=== PATIENT | male | born 1965 | race Caucasian/White ===

== ENCOUNTER 2016-12-31 00:04 | Emergency (ER) | payer OTHER ==
[~2016-12-31] VITALS: Ht 165.1 cm; Wt 108.9 kg
[2016-12-31 00:05] VITALS: BP 151/79
[2016-12-31] MEDS ORDERED: LORAZEPAM 2 MG/ML VIAL. IV ONE (00:30)
[2016-12-31] MEDS ORDERED: IV NORMAL SALINE 1000ML BAG 1,000 ML IV SCH (00:30)
[2016-12-31] MEDS ORDERED: ONDANSETRON PF 4 MG/2 ML VIAL. IV ONE (00:30)
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
[2016-12-31] MEDS ORDERED: ZIPRASIDONE IM 20 MG VIAL. IM ONE (01:30)
[2016-12-31 01:40] LABS: BASO # 0.1 x10^3/uL (0.0-0.2); BASO % 1 % (0-3); EOS % 5 % (0-3); HEMOGLOBIN 15.4 g/dL (13.0-17.5); LYMPH % 36 % (24-48); MEAN CORPUSCULAR HEMOGLOBIN 33 pg (25-35); MEAN CORPUSCULAR HGB CONC 34 g/dL (31-37); MEAN CORPUSCULAR VOLUME 97 fL (79-100); MONO % 12 % (0-9); NEUT % 46 % (31-73); PLATELET COUNT 154 x10^3/uL (140-400); RED BLOOD COUNT 4.66 x10^6/uL (4.30-5.70); WHITE BLOOD COUNT 8.4 x10^3/uL (4.0-11.0)
[2016-12-31] MEDS ORDERED: fentaNYL PF VIAL 100 MCG/2 ML VIAL IV PRN (01:45)
[2016-12-31 01:49] LABS: PROTHROMBIN TIME PATIENT 12.5 SEC (11.7-14.0)
[2016-12-31 01:51] LABS: CALCIUM 8.3 mg/dL (8.5-10.1); CREATININE 1.3 mg/dL (0.7-1.3); POTASSIUM 3.5 mmol/L (3.5-5.1)
[2016-12-31 01:54] LABS: ALBUMIN 3.8 g/dL (3.4-5.0); ALBUMIN/GLOBULIN RATIO 1.1 (1.0-1.7); TOTAL BILIRUBIN 0.3 mg/dL (0.2-1.0); TOTAL PROTEIN 7.4 g/dL (6.4-8.2)
[2016-12-31] MEDS ORDERED: IV NORMAL SALINE 1000ML BAG 1,000 ML IV ONE (02:30)
--- NOTE | 2016-12-31 02:59 | ACF ---
Admission Forms Criteria MUSCULOSKELETAL DISEASE GRG Clinical Indications for Admission to Inpatient Care (Place 'X' for any and all applicable criteria): Hospital admission is needed for appropriate care of the patient because of 1 or more of the following: [ ]I. Fracture, dislocation, or other musculoskeletal injury requiring inpatient care(medical) as indicated by 1 or more of the following(4)(5)(6)(7) [ ]a) Vertebral fracture requiring observation for instability or neurologic compromise (8) [ ]b) Compartment syndrome (proven or cannot be ruled out during observation level of care) (9) [ ]c) Limb-threatening injury [ ]d) Major injury requiring inpatient stabilization such as traction initiation or external fixation before internal fixation or closure of complex or open fracture [ ]e) Major injury requiring inpatient treatment after emergency or observation level care (as appropriate) [ ]f) Severe pain requiring acute inpatient management [ ]g) Injury with suspicion of abuse or neglect (eg., child, dependent elderly) [ ]II. Newly diagnosed or suspected bone, joint, or orthopedic device infection (e.g., osteomyelitis, septic arthritis) needing 1 or more of the following(1)(2)(3) [ ]a) IV antibiotics that cannot be initiated in other than inpatient setting (e.g., patient too unstable or home infusion not available) [ ]b) Device removal or replacement [ ]c) Bone or soft tissue debridement [ ]d) Joint drainage (drain placement or repetitive aspirations) [ ]III. Severe rheumatologic disease (e.g., systemic lupus erythematosus, rheumatoid arthritis) with complications or comorbidities (Also use Optimal Recovery Care Criteria or General Recovery Criteria as appropriate on the basis of predominant condition), including 1 or more of the following( 10)(11)(12)(13) [ ]a) Severe infection (e.g., [employer] SCI[employer] DIRECT[employer] infection, sepsis) (14) [ ]b) Respiratory complications, including 1 or more of the following : [ ]i) Pleural effusion with respiratory compromise [ ]ii) Pulmonary hypertension with congestive failure [ ]iii) Respiratory failure [ ]iv) Pulmonary hemorrhage (15) [ ]c) Hematologic disease, including 1 or more of the following: [ ]i) Coagulopathy with bleeding [ ]ii) Thrombosis with hypercoagulable state [ ]iii) Thrombotic thrombocytopenic purpura [ ]d) Cerebritis with seizures, psychosis, or other severe abnormalities [ ]e) Vertebral destruction with monitoring needed for cervical myelopathy& possible respiratory compromise [ ]f) Exacerbation that requires inpatient treatment (e.g., intravenous immunosuppression) (16) [ ]g) Acute renal failure [ ]h) Cerebritis with seizures, psychosis, Altered mental status, or other neurologic abnormalities [ ]i) Pericardial effusion with tamponade [ ]j) Vertebral destruction, with monitoring needed for cervical myelopathy and possible respiratory compromise [ ]IV. Severe vasculitis with complications or comorbidities (Also use Optimal Recovery Care Criteria General Recovery Criteria as appropriate on the basis of predominant condition), including 1 or more of the following(11)(12)(17)(18)(19)(20) [ ]a) Exacerbation that requires inpatient treatment (e.g., intravenous immunosuppression) (19)(21) [ ]b) Pulmonary hemorrhage (15) [ ]c) [employer] SCI[employer] vasculitis with seizures, psychosis, Altered mental status that is severe or persistent, or other severe abnormalities (22) [ ]d) Cerebral infarction [ ]e) Gastrointestinal ischemia [ ]f) Gangrene or threatened amputation [ ]g) Renal failure (16) [ ]h) Other significant complications of vasculitis ( eg., tissue or organ ischemia, organ dysfunction ) [ ]V. Severe myopathy as indicated by 1 or more of the following (28)(29) [ ]a) New onset of airway compromise or inability to swallow [ ]b) Respiratory deterioration with observation needed for impending respiratory failure [ ]c) Exacerbation that requires inpatient treatment (e.g., intravenous immunosuppression) [ ]. Severe crystal gout (arthropathy) indicated by 1 or more of the following (23)(24) [ ]a) Severe pain requiring acute inpatient management [ ]b) Exacerbation that requires inpatient treatment (e.g., intravenous treatment) [ ]VII.Rhabdomyolysis and 1 or more of the following (25)(26)(27) [ ]a) Acute renal failure [ ]b) Need for intravenous hydration after emergency or observation level care (as appropriate) [ ]c) Inability to maintain oral hydration [ ]d) Change in mental status [ ]e) Electrolyte abnormality that remains after emergency or observation level care (as appropriate) [ ]VIII Post amputation complication, as indicated by ANY ONE of the following [ ]a) Infection [ ]b) Dehiscence [ ]c) Myodesis failure [ ]IX. Severe pain requiring acute inpatient management due to musculoskeletal condition [ ]X. Musculoskeletal Disease and ALL of the following: [ ]a) Symptom or finding for which emergency and observation care have failed or are not considered appropriate (Use General Criteria: Observation Care as appropriate) [ ]b) Presence of ANY ONE of the following [ ]i) A General Admission Criteria [ ]ii) A Pediatric General Admission Criteria The original [email or web address] content created by [employer] has been revised. The portions of the content which have been revised are identified through the use of italic text or in bold, and [facility] has neither reviewed nor approved the modified material. All other unmodified content is copyright [facility] [employer]. Please see references footnoted in the original [facility] [employer] edition 2016 ELHAM RESENDIZ Dec 31, 2016 02:59
[2016-12-31 03:48] LABS: BILIRUBIN,URINE NEGATIVE (NEG); GLUCOSE,URINE NEGATIVE (NEG); NITRITE,URINE NEGATIVE (NEG); PROTEIN,URINE 30 mg/dL (NEG-TRACE); UROBILINOGEN,URINE 0.2 mg/dL (0.2 mg/dL)
[2016-12-31 04:06] LABS: BACTERIA,URINE 0 /HPF (0-FEW); RBC,URINE 0 /HPF (0-2); WBC,URINE 0 /HPF (0-4)
[2016-12-31 04:08] LABS: BARBITURATES NEG (NEG); BENZODIAZEPINES NEG (NEG); CANNABINOIDS NEG (NEG); COCAINE NEG (NEG); METHADONE NEG (NEG); OPIATES NEG (NEG); PHENCYCLIDINE NEG (NEG)
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
== END 2016-12-31 02:45 | disposition short-term general hospital (02) ==
LOC: ER 00:09
DX: S02.32XA Fracture of orbital floor, left side, initial encounter for closed fracture (principal); F41.9 Anxiety disorder, unspecified; R11.10 Vomiting, unspecified; Y04.0XXA Assault by unarmed brawl or fight, initial encounter; Y93.89 Activity, other specified; Y99.8 Other external cause status; Y92.89 Other specified places as the place of occurrence of the external cause
CPT/HCPCS: 36415; 70450; 70486; 71010; 80053; 80305; 80320; 81001; 85027; 85610; 85730; 96361; 96372; 96374; 96375; 99285; J2060; J2405; J3010; J3486; J7030; G0480; G0481

== ENCOUNTER 2017-03-02 19:34 | Emergency (ER) | payer OTHER ==
[~2017-03-02] VITALS: Ht 165.1 cm; Wt 108.9 kg
[2017-03-02] MEDS ORDERED: LIDOCAINE 1%/EPI 1:100,000 20 ML VIAL. INJ ONE (20:30)
[2017-03-02 20:45] VITALS: BP 164/115
[2017-03-02] MEDS ORDERED: CLINDAMYCIN 600MG PREMIX 50 ML IV ONE (21:00)
[2017-03-02] MEDS ORDERED: SULF1TAB24 PO (21:22)
[2017-03-02] MEDS ORDERED: CEPH-264 PO (21:22)
--- NOTE | 2017-03-02 21:23 | PHYS DOC ---
Past Medical History Past Medical History: No Pertinent History Past Surgical History: Tonsillectomy Additional Past Surgical Histo: foot Alcohol Use: Occasionally Drug Use: Methamphetamine Social History Narrative: last use 02/24/17 Adult General Chief Complaint Chief Complaint: UPPER EXTREMITY SWELLING HPI HPI Patient is a 51 year old male who presents with complaint of swelling and pain to the left upper arm. Patient states that one week ago he injected methamphetamine into his arm and thinks that it had infiltrated. Patient states that he has had redness and swelling to the affected area which had worsened immediately after the injection. Patient states that the redness has improved somewhat but he has noticed a "ball" underneath his skin which he is concerned may be an abscess. Patient states that he has had chills and generalized fatigue and weakness. Patient denies fevers or chest pain. Denies nausea or vomiting. Patient has not taking medications to help with symptoms. Pain worsens with movement. Patient rates his pain currently is 8 out of 10. Review of Systems Review of Systems Constitutional: Chills, fatigue, denies fever [] Eyes: Denies change in visual acuity, redness, or eye pain [] HENT: Denies nasal congestion or sore throat [] Respiratory: Denies cough or shortness of breath [] Cardiovascular: Denies chest pain or edema [] GI: Denies abdominal pain, nausea, vomiting, bloody stools or diarrhea [] : Denies dysuria or hematuria [] Musculoskeletal: Left upper arm swelling and pain [] Integument: Denies rash or skin lesions [] Neurologic: Denies headache, focal weakness or sensory changes [] Current Medications Current Medications Current Medications Medications (Trade) Dose Ordered Sig/[facility] Start Time Stop Time Status Last Admin Dose Admin Clindamycin Phosphate 50 ml @ 100 mls/hr 1X ONCE 03/02/17 21:00 03/02/17 21:29 DC 03/02/17 21:10 100 MLS/HR Lidocaine/ Epinephrine (Xylocaine 1%-Epi 1:100,000) 20 ml 1X ONCE 03/02/17 20:30 03/02/17 20:31 DC 03/02/17 20:30 20 ML Allergies Allergies Allergies Coded Allergies Type Severity Reaction Last Updated Verified No Known Drug Allergies 10/21/13 No Physical Exam Physical Exam Constitutional: Alert, afebrile, vital signs stable, appears in mild to moderate discomfort. [] HENT: Normocephalic, atraumatic, bilateral external ears normal, oropharynx moist, no oral exudates, nose normal. [] Eyes: PERRLA, EOMI, conjunctiva normal, no discharge. [] Neck: Normal range of motion, no tenderness, supple, no stridor. [] Cardiovascular:Heart rate regular rhythm, no murmur [] Lungs & Thorax: Bilateral breath sounds clear to auscultation [] Abdomen: Bowel sounds normal, soft, no tenderness, no masses, no pulsatile masses. [] Skin: Warm, dry, no erythema, no rash. [] Back: No tenderness, no CVA tenderness. [] Extremities: One half centimeter swollen, indurated, erythematous lesion to the distal left upper arm, tender to palpation, range of motion and left upper extremity intact, pulses 2+ distal to site of swelling. [] Neurologic: Alert and oriented X 3, normal motor function, normal sensory function, no focal deficits noted. [] Current Patient Data Vital Signs Vital Signs Date Time Temp Pulse Resp B/P (MAP) Pulse Ox O2 Delivery O2 Flow Rate FiO2 03/02/17 19:45 98.2 76 18 177/107 (130) 99 Room Air 98.2 EKG EKG Not performed [] Radiology/Procedures Radiology/Procedures Two-view left humerus x-ray interpreted by me: No fractures, no metal foreign bodies, mild to moderate soft tissue swelling [] Course & Med Decision Making Course & Med Decision Making Pertinent Labs and Imaging studies reviewed. (See chart for details) The patient's abscess was drained as outlined in the procedure note. Patient was given IV Cleocin in the emergency department. X-rays negative for metal foreign body. The patient will continue on 10 day course of Bactrim and Keflex. Recommended follow-up with the emergency department in 3-4 days for reevaluation and replacement of packing material. The patient will be referred to the wound care clinic here [facility] with recommended follow- up in one week. Advised return to the emergency department for any worsening symptoms. Patient was understanding and in agreement with treatment plan. Dragon Disclaimer Dragon Disclaimer This electronic medical record was generated, in whole or in part, using a voice recognition dictation system. Incision and Drainage Indication: Left upper arm abscess Procedure: The patient was positioned appropriately. Local anesthesia was was achieved with injection of lidocaine 1% with epinephrine. An incision was then made over the apex of the lesion and drainage of 3 mL of thick yellow purulent material was expressed. The drainage cavity was irrigated and packed with iodoform gauze. The patients tetanus status updated as needed. The patient tolerated the procedure well. Complications: none. Departure Departure Impression: Primary Impression: Abscess of left upper extremity Disposition: HOME, SELF-CARE Condition: IMPROVED Referrals: UNKNOWN PCP NAME (PCP) Patient Instructions: Abscess, Care After Additional Instructions: Follow-up in 3-4 days for reevaluation and replacement of your wound packing. You may follow back up in the emergency department if you do not have a primary doctor to follow with. You are also being referred to the wound care clinic. Call the number on the brochure provided at discharge to schedule an appointment in the next week. Return to the emergency department for any worsening symptoms. Scripts Sulfamethoxazole/Trimethoprim (BACTRIM DS TABLET) 1 Each Tablet 1 TAB PO BID, #20 TAB Prov: GOLDIE WHEAT MD 03/02/17 Cephalexin (KEFLEX) 500 Mg Capsule 1 CAP PO TID, #30 CAP Prov: GOLDIE WHEAT MD 03/02/17 GOLDIE WHEAT MD Mar 02, 2017 21:23
--- NOTE | 2017-03-03 08:51 | RAD ---
Left humerus, 2 views, 03/02/2017: History: Upper arm abscess, possible foreign body No humeral fracture or destructive bony lesion is seen. There is moderate arthritic change at the AC joint. No radiopaque foreign body is evident in the soft tissues. IMPRESSION: No acute abnormality is detected.
--- NOTE | 2017-03-03 09:08 | EKG ---
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
== END 2017-03-02 21:39 | disposition home or self-care (01) ==
LOC: ER 19:34
DX: L02.414 Cutaneous abscess of left upper limb (principal); R53.83 Other fatigue; F15.10 Other stimulant abuse, uncomplicated; R53.1 Weakness
CPT/HCPCS: 10060; 73060; 93005; 96365; 99284; J3490

== ENCOUNTER 2017-03-05 17:52 | Emergency (ER) | payer OTHER ==
[~2017-03-05] VITALS: Ht 165.1 cm; Wt 108.9 kg
[~2017-03-05 17:52] MED LIST: CEPH-264 PO; SULF1TAB24 PO
[2017-03-05 18:12] VITALS: BP 153/91
--- NOTE | 2017-03-05 18:50 | PHYS DOC ---
Past Medical History Past Medical History: No Pertinent History Past Surgical History: No Surgical History Additional Past Surgical Histo: foot Alcohol Use: Occasionally Drug Use: None Social History Narrative: states clean for 10 years, used approx 2 wks ago, denies use currently Adult General Chief Complaint Chief Complaint: WOUND CHECK HPI HPI Patient is a 51 year old male with history of IV meth use who presents today for wound check for an abscess on the left upper extremity that was drained 3 days ago. Patient states he had packing in the abscess that fell out yesterday. Patient states the wound condition is improving though he still has a hard knot in the wound. Patient states he is supposed to follow-up with the wound clinic but they were closed today. Review of Systems Review of Systems Constitutional: Denies fever or chills [] Musculoskeletal: Denies back pain or joint pain [] Integument: Left upper extremity wound check for an abscess Neurologic: Denies headache, focal weakness or sensory changes [] Endocrine: Denies polyuria or polydipsia [] Allergies Allergies Allergies Coded Allergies Type Severity Reaction Last Updated Verified No Known Drug Allergies 10/21/13 No Physical Exam Physical Exam Constitutional: Well developed, well nourished, no acute distress, non-toxic appearance. [] Skin: Left upper extremity above the before meals joint with an open wound, there is no drainage from the wound. There is mild induration around the wound. There is small amount of cellulitis around the wound. Neurovascular exam is intact. The area is not warm but tender to palpate. Back: No tenderness, no CVA tenderness. [] Extremities: No tenderness, no cyanosis, no clubbing, ROM intact, no edema. [] Neurologic: Alert and oriented X 3, normal motor function, normal sensory function, no focal deficits noted. [] Psychologic: Affect normal, judgement normal, mood normal. [] Current Patient Data Vital Signs Vital Signs Date Time Temp Pulse Resp B/P (MAP) Pulse Ox O2 Delivery O2 Flow Rate FiO2 03/05/17 18:12 98.4 92 18 95 Room Air 98.4 EKG EKG [] Radiology/Procedures Radiology/Procedures [] Course & Med Decision Making Course & Med Decision Making Pertinent Labs and Imaging studies reviewed. (See chart for details) Patient is in the ED for wound check for an abscess that was drained 3 days ago , the packing came out yesterday. The abscess does not need to be re-drained. Patient is supposed to follow-up with the wound clinic, he states they were closed today. Recommended he call the clinic Sunday morning for a F/u appointment and continue his antibiotics. Arelion Disclaimer Dragon Disclaimer This electronic medical record was generated, in whole or in part, using a voice recognition dictation system. Departure Departure Impression: Primary Impression: Wound check, abscess Disposition: HOME, SELF-CARE Condition: STABLE Referrals: NO PCP (PCP) Call [facility] wound clinic on Sunday this week for a follow-up appointment. The phone number is [phone]. Patient Instructions: Abscess, Care After Additional Instructions: Please call [facility] wound clinic on Sunday this week for a follow-up appointment. The phone number is [phone]. Continue taking antibiotics. Come back to the ED symptoms worsen. ADRIANA JORDAN APRN Mar 05, 2017 18:50
== END 2017-03-05 18:57 | disposition home or self-care (01) ==
LOC: ER 17:52
DX: Z48.01 Encounter for change or removal of surgical wound dressing (principal)
CPT/HCPCS: 99281

== ENCOUNTER 2017-04-30 19:29 | Emergency (ER) | payer OTHER ==
[~2017-04-30] VITALS: Ht 165.1 cm; Wt 111.1 kg
[2017-04-30 20:20] VITALS: BP 178/110
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
--- NOTE | 2017-05-01 08:16 | RAD ---
Exam performed: 4 views right knee. Clinical indication: Right knee pain, no known injury Date of Service: 04/30/17 Comparison:None available Findings: AP, oblique, lateral radiographs of the knee and sunrise view of the patella reveal the osseous structures to be intact and well aligned. Minimal narrowing of the medial right tibiofemoral joint space The articular margins are smooth. Evidence of calcific loose body or joint effusion is absent. Impression: Early degenerative changes involving the medial tibiofemoral joint compartment. No acute abnormality seen in the right knee
== END 2017-04-30 21:15 | disposition home or self-care (01) ==
LOC: ER 19:29
DX: M25.561 Pain in right knee (principal); F32.9 Major depressive disorder, single episode, unspecified
CPT/HCPCS: 29505; 73564; 99284-25

== ENCOUNTER 2017-06-20 17:26 | Emergency (ER) | payer OTHER ==
[~2017-06-20] VITALS: Ht 165.1 cm; Wt 95.3 kg
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
[2017-06-20 18:00] LABS: BASO # 0.1 x10^3/uL (0.0-0.2); BASO % 1 % (0-3); EOS % 5 % (0-3); HEMATOCRIT 46.9 % (39.0-53.0); LYMPH # 1.8 x10^3/uL (1.0-4.8); LYMPH % 19 % (24-48); MEAN CORPUSCULAR HEMOGLOBIN 32 pg (25-35); MEAN CORPUSCULAR HGB CONC 34 g/dL (31-37); MEAN CORPUSCULAR VOLUME 93 fL (79-100); MONO % 9 % (0-9); NEUT % 66 % (31-73); PLATELET COUNT 203 x10^3/uL (140-400); RED BLOOD COUNT 5.04 x10^6/uL (4.30-5.70); RED CELL DISTRIBUTION WIDTH 13.3 % (11.5-14.5); WHITE BLOOD COUNT 9.2 x10^3/uL (4.0-11.0)
--- NOTE | 2017-06-20 18:08 | RAD ---
CT head without intravenous contrast History: Transmission fell on head. Comparison: Same examinations December 31, 2016. Technique: Axial images are obtained of the head from the skull base through the vertex without IV contrast. Exposure: One or more of the following individualized dose reduction techniques were utilized for this examination: 1. Automated exposure control 2. Adjustment of the mA and/or kV according to patient size 3. Use of iterative reconstruction technique Findings: The ventricles are appropriate in size, shape, and location for the patient's age. No obvious intracranial mass, mass-effect, midline shift, hemorrhage or obvious acute infarction is identified. Basilar cisterns are patent. Bone windows demonstrate no acute calvarial abnormality. Impression: 1. No acute intracranial process. CT face without contrast Technique: CT of the face was performed without intravenous contrast. Axial, sagittal, and coronal reconstructions were obtained. Exposure: One or more of the following individualized dose reduction techniques were utilized for this examination: 1. Automated exposure control 2. Adjustment of the mA and/or kV according to patient size 3. Use of iterative reconstruction technique Findings: No acute fracture is identified. Bilateral orbital contents appear intact. Without appreciable change is a left orbital floor fracture. Mild right and mild-moderate left maxillary sinus disease is seen. Other paranasal sinuses appear clear. Impression: 1. No acute facial fracture identified. 2. Old left orbital floor fracture. 3. Bilateral maxillary sinus disease. Electronically signed by: Luca Harrison MD (06/20/2017 6:04 PM) [facility]
--- NOTE | 2017-06-20 18:10 | RAD ---
CT cervical spine History: Transmission fell on patient's head. Comparison: None. Technique: Noncontrast CT of the cervical spine was performed using helical technique. Axial, sagittal, coronal reconstructions were obtained. Exposure: One or more of the following individualized dose reduction techniques were utilized for this examination: 1. Automated exposure control 2. Adjustment of the mA and/or kV according to patient size 3. Use of iterative reconstruction technique Findings: There is no evidence of acute fracture or acute malalignment involving the cervical spine. No prevertebral soft tissue swelling is identified. Impression: No evidence of acute traumatic injury involving the cervical spine. Electronically signed by: Luca Harrison MD (06/20/2017 6:06 PM) [facility]
[2017-06-20 18:15] LABS: PROTHROMBIN TIME PATIENT 12.7 SEC (11.7-14.0)
[2017-06-20 18:19] LABS: CALCIUM 10.3 mg/dL (8.5-10.1); GFR 78.5; POTASSIUM 4.1 mmol/L (3.5-5.1)
[2017-06-20 18:24] LABS: ALBUMIN 3.7 g/dL (3.4-5.0); CKMB MASS 5.2 ng/mL (0.0-3.6); TOTAL BILIRUBIN 0.6 mg/dL (0.2-1.0); TOTAL PROTEIN 7.5 g/dL (6.4-8.2)
[2017-06-20] MEDS ORDERED: IV NORMAL SALINE 1000ML BAG 1,000 ML IV ONE (19:00)
[2017-06-20 19:09] VITALS: BP 134/73
[2017-06-20] MEDS ORDERED: ACETAMINOPHEN 500 MG TABLET PO ONE (19:15)
== END 2017-06-20 19:21 | disposition home or self-care (01) ==
LOC: ER 17:26
DX: S00.83XA Contusion of other part of head, initial encounter (principal); S00.11XA Contusion of right eyelid and periocular area, initial encounter; J32.0 Chronic maxillary sinusitis; W22.8XXA Striking against or struck by other objects, initial encounter; Y93.89 Activity, other specified; Y99.8 Other external cause status; Y92.89 Other specified places as the place of occurrence of the external cause
CPT/HCPCS: 36415; 70450; 70486; 72125; 80053; 82553; 85025; 85610; 96360; 99285; J7030

== ENCOUNTER 2018-01-03 16:26 | Emergency (ER) | payer SELFPAY, OTHER | END 2018-01-03 17:41 | disposition home or self-care (01) | LOC: ER 16:26 | DX: J01.00 Acute maxillary sinusitis, unspecified (principal); R03.0 Elevated blood-pressure reading, without diagnosis of hypertension | CPT/HCPCS: 99283 ==

== ENCOUNTER 2019-11-24 04:11 | Emergency (ER) | payer SELFPAY ==
[~2019-11-24] VITALS: Ht 165.1 cm; Wt 104.3 kg
[~2019-11-24 04:11] MED LIST changes: +AMOX1TAB11 PO
[2019-11-24 04:20] VITALS: BP 174/121
--- NOTE | 2019-11-24 04:51 | PHYS DOC ---
Past Medical History Past Medical History: Arthritis Past Surgical History: Tonsillectomy, Other Additional Past Surgical Histo: foot Smoking Status: Never Smoker Alcohol Use: None Drug Use: Cocaine, Methamphetamine Adult General Chief Complaint Chief Complaint: KNEE INJURY HPI HPI 53-year-old male presents emergency department complaints of right knee pain. Patient states pain started yesterday worsening overnight. Has been using Tylenol as well as Motrin [id number] without significant relief. He does have a history of osteoarthritis. There is no significant erythema appreciated over the knee, no significant concern for effusion appreciated upon palpation. He states movements and weightbearing make the pain worse patient denies any systemic fever. Patient has any headache, visual change, chest pain, shortness breath, nausea or vomiting. Nothing makes his pain better Review of Systems Review of Systems Constitutional: Denies fever or chills [] Respiratory: Denies cough or shortness of breath [] Cardiovascular: No additional information not addressed in HPI [] GI: Denies abdominal pain, nausea, vomiting, bloody stools or diarrhea [] Musculoskeletal: Knee pain Integument: Denies rash or skin lesions [] Neurologic: Denies headache, focal weakness or sensory changes [] All other systems were reviewed and found to be within normal limits, except as documented in this note. Current Medications Current Medications Current Medications Medications (Trade) Dose Ordered Sig/[facility] Start Time Stop Time Status Last Admin Dose Admin Ketorolac Tromethamine (Toradol Im) 60 mg 1X ONCE 11/24/19 05:00 11/24/19 05:01 DC 11/24/19 05:19 60 MG Prednisone (Prednisone) 60 mg 1X ONCE 11/24/19 05:00 11/24/19 05:01 DC 11/24/19 05:19 60 MG Allergies Allergies Allergies Coded Allergies Type Severity Reaction Last Updated Verified No Known Drug Allergies 10/21/13 No Physical Exam Physical Exam Constitutional: Well developed, distress 2/2 pain, non-toxic appearance. [] Cardiovascular:Heart rate regular rhythm, no murmur [] Lungs & Thorax: Bilateral breath sounds clear to auscultation [] Abdomen: Bowel sounds normal, soft, no tenderness, no masses, no pulsatile masses. [] Skin: Warm, dry, no erythema, no rash. [] Extremities: Tender to palpation with the knee, limited range of motion secondary to pain, no obvious effusion appreciated, no erythema appreciated Neurologic: Alert and oriented X 3, no focal deficits noted. [] Psychologic: Affect normal, judgement normal, mood normal. [] Current Patient Data Vital Signs Vital Signs Date Time Temp Pulse Resp B/P (MAP) Pulse Ox O2 Delivery O2 Flow Rate FiO2 11/24/19 04:20 97.6 84 16 174/121 (138) 96 Room Air 97.6 EKG EKG [] Radiology/Procedures Radiology/Procedures [] Course & Med Decision Making Course & Med Decision Making Pertinent Labs and Imaging studies reviewed. (See chart for details) []53-year-old male presents emergency department complaints of right knee pain. Patient states pain started yesterday worsening overnight. Has been using Tylenol as well as Motrin [id number] without significant relief. He does have a history of osteoarthritis. There is no significant erythema appreciated over the knee, no significant concern for effusion appreciated upon palpation. He states movements and weightbearing make the pain worse patient denies any systemic fever. Patient has any headache, visual change, chest pain, shortness breath, nausea or vomiting. Nothing makes his pain better Dragon Disclaimer Dragon Disclaimer This electronic medical record was generated, in whole or in part, using a voice recognition dictation system. Departure Departure Impression: Primary Impression: Right knee pain Additional Impression: Gout Disposition: 01 HOME, SELF-CARE Condition: STABLE Referrals: NO PCP (PCP) Patient Instructions: Gout, [id number], Knee Pain Additional Instructions: Medrol dose rancho upon discharge Tramadol as needed for pain Colchicine as directed Xray without evidence of acute fracture or joint effusion Return to the ER with systemic fever Recommend follow up with PCP in 1 - 2 days Scripts Tramadol Hcl (TRAMADOL HCL) 50 Mg Tablet 50 MG PO Q6-8HRS PRN for PAIN, #10 TAB 0 Refills Prov: JIMENEZ BURRELL MD 11/24/19 Methylprednisolone (MEDROL) 4 Mg Tab.ds.pk 1 PKG PO UD for inflammation, #1 PKG Prov: JIMENEZ BURRELL MD 11/24/19 Problem Qualifiers Primary Impression: Right knee pain Chronicity: acute Qualified Codes: M25.561 - Pain in right knee Additional Impression: Gout Gout site: knee Gout etiology: unspecified cause Chronicity: acute Laterality: right Qualified Codes: M10.9 - Gout, unspecified JIMENEZ BURRELL MD Nov 24, 2019:51
[2019-11-24] MEDS ORDERED: predniSONE 20 MG TABLET PO ONE (05:00)
[2019-11-24] MEDS ORDERED: KETOROLAC 60 MG/2 ML VIAL. IM ONE (05:00)
--- NOTE | 2019-11-24 05:41 | RAD ---
KNEE RIGHT 2V DATE: 11/24/2019 4:46 AM INDICATION: Knee pain COMPARISON: 04/30/2017 FINDINGS: Bones: There is no evidence of acute fracture or dislocation. Joints: Moderate medial compartment degenerative changes, mild lateral and patellofemoral compartment. Knee joint effusion is present Miscellaneous: None. IMPRESSION: No acute osseous abnormality. Electronically signed by: Hany Brown MD (11/24/2019 5:39 AM) [id number]
[2019-11-24] MEDS ORDERED: TRAM50TA PO (05:44)
[2019-11-24] MEDS ORDERED: METH4TAB2 PO (05:44)
== END 2019-11-24 05:50 | disposition home or self-care (01) ==
LOC: ER 04:11
DX: M25.561 Pain in right knee (principal); M10.9 Gout, unspecified; M19.90 Unspecified osteoarthritis, unspecified site; F14.90 Cocaine use, unspecified, uncomplicated; Z90.89 Acquired absence of other organs; Z98.890 Other specified postprocedural states
CPT/HCPCS: 73560; 96372; 99283; J1885; J7512

== ENCOUNTER 2021-03-22 14:25 | Observation (INO) | payer SELFPAY ==
[~2021-03-22] VITALS: Ht 165.1 cm; Wt 102.3 kg
[~2021-03-22 14:25] MED LIST changes: +METH4TAB2 PO; +TRAM50TA PO
--- NOTE | 2021-03-22 15:10 | PHYS DOC ---
Past Medical History Past Medical History: Arthritis Past Surgical History: Tonsillectomy, Other Additional Past Surgical Histo: foot Smoking Status: Never Smoker Alcohol Use: None Drug Use: Cocaine, Methamphetamine General Adult EDM: Chief Complaint: CHEST PAIN HPI: HPI: Patient is a 55 year old male who presents emergency department complaining of sternal chest pain. 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 Was given 324 aspirin in route along with one sublingual nitroglycerin tablet in route for a 10 out of 10 chest pain in which patient reports chest pain decreased to a 6 out of 10. Patient reports he was at work today approximately 2 hours ago when he developed a slight headache, denies thunderclap onset reports similar onsets of previous headaches, states he was given a marijuana gummy medication by his friend to treat his headache in which she took two of, patient reports within minutes he became very nauseated, developed a sternal chest pain that radiated up into his throat, did not have any vomiting episodes, denies any dizziness or visual disturbances. Patient states it did take his headache away however he had 10 out of 10 chest pain in which 911 was called. Patient states he feels "a little short of breath "denies chest palpitations, denies nasal congestion or chest congestion, denies any recent fever or chills, denies any recent illnesses, denies abdominal pain, vomiting, or diarrhea, states he has "some nausea ". Patient denies receiving the COVID-19 vaccination series reporting he has been too busy to do so but plans on receiving the vaccination as soon as he can. Patient does report a family history of heart disease stating both his mother and father were cigarette smokers, mother is a diabetic and is still living, father just recently for infection in his blood, had history of cigarette smoking, cardiac pacemaker, cardiac disease, hypertension. Patient denies allergies to medications, states he takes no prescription medications. 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 Patient denies a cardiac history, reports he was seen in the [facility] years ago for irregular heartbeat however was not diagnosed with any cardiac problems. Patient denies any other physical complaints or physical concerns. Review of Systems: Review of Systems: 14 body systems of review of systems have been reviewed. See HPI for pertinent positives and negative responses, otherwise all other systems are negative, nonpertinent or noncontributory. Constitutional: Negative except as outlined in HPI above. Skin: Negative except as outlined in HPI above. Eyes: Negative except as outlined in HPI above. HENT: Negative except as outlined in HPI above. Respiratory: Negative except as outlined in HPI above. Cardiovascular: Negative except as outlined in HPI above. GI: Negative except as outlined in HPI above. : Negative except as outlined in HPI above. Musculoskeletal: Negative except as outlined in HPI above. Integument: Negative except as outlined in HPI above. Neurologic: Negative except as outlined in HPI above. Endocrine: Negative except as outlined in HPI above. Lymphatic: Negative except as outlined in HPI above. Psychiatric: Negative except as outlined in HPI above. Heart Score: C/O Chest Pain: Yes HEART Score for Chest Pain: HEART Score for Chest Pain Response (Comments) Value History Slighlty/Non-Suspicious 0 ECG Normal 0 Age >45 - < 65 1 Risk Factors 1 or 2 Risk Factors 1 Total 2 Risk Factors: Risk Factors: DM, Current or recent (<one month) smoker, HTN, HLP, family history of CAD, obesity. Risk Scores: Score 0 - 3: 2.5% MACE over next 6 weeks - Discharge Home Score 4 - 6: 20.3% MACE over next 6 weeks - Admit for Clinical Observation Score 7 - 10: 72.7% MACE over next 6 weeks - Early Invasive Strategies Family History: Family History: Patient reports a family history of mother having type 2 diabetes is still alive, father in his approximately week ago with a history of hypertension, cardiac disease, cigarette smoking, cardiac pacemaker, patient reports father from infection in his blood. Allergies: Allergies: Allergies Coded Allergies Type Severity Reaction Last Updated Verified No Known Drug Allergies 10/21/13 No Physical Exam: PE: Constitutional: Well developed, well nourished, 55-year-old male appears uncomfortable however is in no acute distress and nontoxic in appearance. HENT: Normocephalic, atraumatic, bilateral external ears normal, oropharynx moist, no oral exudates, nose normal. Eyes: PERRLA, EOMI, conjunctiva normal, no discharge. Neck: Normal range of motion, no tenderness, supple, no stridor. No nuchal rigidity, no meningismus signs. Cardiovascular:Heart rate regular rhythm, no murmur, heart sounds S1-S2, tachycardic heart rate at 104 bpm during physical examination. PMI to the left. Lungs & Thorax: Bilateral breath sounds clear to auscultation, no adventitious lung sounds appreciated all lung salter for auscultation. Abdomen: Bowel sounds normal, soft, no tenderness, no masses, no pulsatile masses. Skin: Warm, dry, no erythema, no rash. Back: No tenderness, no CVA tenderness. Extremities: No tenderness, no cyanosis, no clubbing, ROM intact, no edema. Neurologic: Alert and oriented X 3, normal motor function, normal sensory function, no focal deficits noted. Psychologic: Affect normal, judgement normal, mood normal. Current Patient Data: Vital Signs: Vital Signs Date Time Temp Pulse Resp B/P (MAP) Pulse Ox O2 Delivery O2 Flow Rate FiO2 03/22/21 14:25 98.4 99 21 162/85 (138) 96 Room Air 98.4 EKG: EKG: EKG performed at 1430 by ED nursing staff shows sinus tachycardia with a right bundle branch block, no other ectopy appreciated, AZ interval 0.110, QTc interval 0.473, no acute STEMI, no ACS, no acute ischemia appreciated, EKG interpreted by ED attending physician Dr. Daily. Serial EKG #2 performed at 1611 by myself, shows normal sinus rhythm with a right bundle branch block, no other ectopy, heart rate 89 bpm, AZ interval 0.164, QTc interval 0.461, no ACS, no acute ischemia, no acute STEMI appr eciated, EKG interpreted by ED attending physician Dr. Daily. Radiology/Procedures: Radiology/Procedures: PATIENT: KENDY FRASER ACCOUNT: [id number] : 1965 LOCATION: ER AGE: 55 SEX: M EXAM STATUS: PRE ER ORD. PHYSICIAN: MARNI ASTUDILLO APRN REASON: Chest pain PROCEDURE: PORTABLE CHEST 1V Exam: Chest one view INDICATION: Chest pain TECHNIQUE: Frontal view of chest Comparisons: 12/31/2016 FINDINGS: The cardiomediastinal silhouette and pulmonary vessels are within normal limits. The lung and pleural spaces are clear. IMPRESSION: No acute cardiopulmonary process. Electronically signed by: Tatiana Valente MD (03/22/2021 3:29 PM) [facility] DICTATED and SIGNED BY: TATIANA VALENTE MD DATE: 03/22/21 [id number] 0 Course & Med Decision Making: Course & Med Decision Making Pertinent Labs and Imaging studies reviewed. 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 Physical examination concerning for cardiac process versus dyspepsia. Patient reveals he did not eat foods prior to eating the marijuana gummy medications, reports drinking a Mountain Dew with the gummy medications. Patient has not had any food since. Suspicious for dyspepsia related to this however will order cardiorespiratory work-up. Sublingual Zofran ordered, GI cocktail ordered, if no significant relief will order sublingual nitroglycerin series. Patient does reveal he has never had chest pain like this however he has never ingested marijuana gummy medication before. 1 view chest x-ray read negative for acute process per house radiologist interpretation. At 1620, patient had not received order medications related to ED nursing staffing, medications given by myself 4 mg sublingual nitroglycerin for mild nausea, patient reported nausea relief with 2 minutes, GI cocktail given 20 mils p.o., will wait a period of time and reevaluate results of GI cocktail medication given. At 1635 upon reevaluation of the patient, patient denies any change in chest pain, reports his pain has changed from a sharp shooting pain to a pressure as if something is pushing on his chest, rating it at a 5, IV normal saline bolus had not been initiated yet by ED nursing staff, 1000 cc normal saline bolus was initiated by myself. Will order sublingual nitro regimen. Sublingual nitroglycerin regimen medications given by myself related to ED staffing, first tablet given at 1645 for chest pain 5 out of 10, second tablet given at 1654 chest pain 2 out of 10, at 1650 third tablet sublingual deferred related to relief of symptoms, pressure and O2 saturation on room air remained stable, patient's heart rate did rise from 90 up to 103 after second sublingual nitro given, discussed with patient recommendation of admission to hospital for unstable angina, consult with supervisor [employer]. Patient is amendable to this plan. Placed call to hospitalist Dr. Gray to discussed patient case and admission. Discussed patient case and emergency department work-up with [facility] hospitalist Dr. Gray who agrees the patient's presentation and case warrants admission under observation with cardiology consult, Dr. Gray come to the ED to evaluate patient for admission and further care. Patient remains hemodynamically stable at this time, Dr. Gray has assumed patient care. Dragon Disclaimer: Shawn Disclaimer: This electronic medical record was generated, in whole or in part, using a voice recognition dictation system. Departure Departure Impression: Primary Impression: Unstable angina Additional Impression: Chest pain Qualified Codes: I20.0 - Unstable angina Disposition: ADMITTED INPATIENT Admitting Physician: ANTONETTE (Admit to Dr. Gray observation CVC unit) Condition: GUARDED Referrals: NO PCP (PCP) MARNI ASTUDILLO APRN Mar 22, 2021 15:10
[2021-03-22] MEDS ORDERED: NITROGLYCERIN SUBLINGUAL 0.4 MG BOTTLE OF 25. SL PRN ×3 (15:15→17:30)
[2021-03-22] MEDS ORDERED: 0.9 % SODIUM CHLORIDE 10 ML DISP.SYRIN. IV PRN (15:15)
[2021-03-22] MEDS ORDERED: IV NORMAL SALINE 1000ML BAG 1,000 ML IV SCH (15:15)
[2021-03-22 15:23] LABS: BASO # 0.1 x10^3/uL (0.0-0.2); BASO % 1 % (0-3); EOS # 0.3 x10^3/uL (0.0-0.7); EOS % 4 % (0-3); HEMATOCRIT 39.9 % (39.0-53.0); HEMOGLOBIN 13.8 g/dL (13.0-17.5); LYMPH # 1.5 x10^3/uL (1.0-4.8); LYMPH % 22 % (24-48); MEAN CORPUSCULAR HEMOGLOBIN 31 pg (25-35); MEAN CORPUSCULAR HGB CONC 35 g/dL (31-37); MEAN CORPUSCULAR VOLUME 89 fL (79-100); MONO # 0.7 x10^3/uL (0.0-1.1); MONO % 10 % (0-9); NEUT # 4.2 x10^3/uL (1.8-7.7); NEUT % 63 % (31-73); PLATELET COUNT 195 x10^3/uL (140-400); RED CELL DISTRIBUTION WIDTH 14.5 % (11.5-14.5); WHITE BLOOD COUNT 6.7 x10^3/uL (4.0-11.0)
[2021-03-22] MEDS ORDERED: LIDO:MAALOX 1:1 20 ML SINGLE DOSE. SWSW ONE (15:30)
--- NOTE | 2021-03-22 15:32 | RAD ---
Exam: Chest one view INDICATION: Chest pain TECHNIQUE: Frontal view of chest Comparisons: 12/31/2016 FINDINGS: The cardiomediastinal silhouette and pulmonary vessels are within normal limits. The lung and pleural spaces are clear. IMPRESSION: No acute cardiopulmonary process. Electronically signed by: Tatiana Murillo MD (03/22/2021 3:29 PM) CATE
[2021-03-22 15:45] LABS: CALCIUM 8.7 mg/dL (8.5-10.1); CREATININE 1.1 mg/dL (0.7-1.3); GFR 69.2; POTASSIUM 4.1 mmol/L (3.5-5.1)
[2021-03-22] MEDS ORDERED: ONDANSETRON ODT 4 MG TAB.RAPDIS. PO ONE (15:45)
[2021-03-22 15:49] LABS: ALBUMIN 3.6 g/dL (3.4-5.0); ALBUMIN/GLOBULIN RATIO 1.1 (1.0-1.7); DIRECT BILIRUBIN 0.1 mg/dL (0.0-0.2); MAGNESIUM 2.2 mg/dL (1.8-2.4); TOTAL BILIRUBIN 0.3 mg/dL (0.2-1.0)
--- NOTE | 2021-03-22 16:37 | EKG ---
[facility] [address] [place] [address] Test Date: 2021-03-22 Test Time: 16:11:05 Pat Name: KENDY FRASER Department: Room: Gender: M [employer]: : 1965 Requested By: MARNI ASTUDILLO Order Number: [id number] Reading MD: Measurements Intervals [place] Rate: 89 P: 19 SD: 164 QRS: 17 QRSD: 122 T: 22 QT: 378 QTc: 461 Interpretive Statements SINUS RHYTHM INCOMPLETE RIGHT BUNDLE BRANCH BLOCK NON SPECIFIC T ABNORMALITY BORDERLINE ECG RI6.02 Compared to ECG 03/22/2021 14:30:45 T-wave abnormality now present Supraventricular rhythm no longer present
--- NOTE | 2021-03-22 16:37 | EKG ---
[facility] [address] [place] [address] Test Date: 2021-03-22 Test Time: 14:30:45 Pat Name: KENDY FRASER Department: Room: Gender: M [employer]: : 1965 Requested By: MARNI ASTUDILLO Order Number: [id number] Reading MD: Measurements Intervals [place] Rate: 109 P: -154 AR: 110 QRS: 71 QRSD: 122 T: 12 QT: 350 QTc: 473 Interpretive Statements SUPRAVENTRICULAR RHYTHM INCOMPLETE RIGHT BUNDLE BRANCH BLOCK QRS(T) CONTOUR ABNORMALITY CONSIDER ANTEROSEPTAL MYOCARDIAL DAMAGE POSSIBLY ABNORMAL ECG RI6.01 No previous ECG available for comparison
--- NOTE | 2021-03-22 17:28 | PDOC1 ---
History and Physical Date of Admission Date of Admission DATE: 03/22/21 TIME: 17:28 Identification/Chief Complaint Chief Complaint Chest pain Source Source: Chart review, Patient History of Present Illness History of Present Illness Mr Cross is a 55 year old male w/ PMHx morbid obesity who presents to ED via EMS c/o substernal chest pain. 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 He took two. He notes within 20 minutes he became nauseated and diaphoretic, felt like he was going to pass out, then developed substernal chest pain that radiated up into his throat, at which point he called 911, He notes the pain was 10/10, sharp and with above associated diaphoresis and nausea as well as some slight shortness of breath. Was given 324 aspirin in route along with one sublingual nitroglycerin and decreased his pain to a 6 out of 10. He has no recent travel, fever or chills, denies any recent illnesses, denies abdominal pain, vomiting, or diarrhea and no recent sick contacts. He does have family history of CAD in mother and father and all men on his side of the family. He is particularly worried because his stepson just had an VT, then on further questioning notes his stepson is not blood related. 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 This is the first time he notes trying THC containing products. Patient denies a cardiac history, reports he was seen in the hospital years ago for irregular heartbeat however was not diagnosed with any cardiac problems. He does note when he was "younger" he had esophageal dilation x2. EKG initially sinus tachycardia with a right bundle branch block, no other ectopy appreciated, IN interval 0.110, QTc interval 0.473, no ST elevations or depressions EKG normal sinus rhythm with incomplete right bundle branch block, rate 89 bpm, IN interval 0.164, QTc interval 0.461, no ST segment elevation or TWI Chest radiograph with no acute findings. CBC and CMP within normal laboratory limits with glucose in 120, not fasting, patient notes drinking a mountain dew prior to arrival. Troponin 0, TSH WNL. Li pase and LFTs WNL Admitted for further observation given his improvement after NTG x2 doses. Past Medical History Cardiovascular: No pertinent hx GI: No pertinent hx Psych: Anxiety, Addictions Past Surgical History Past Surgical History: Other (EGD) Family History Family History: Alcohol Abuse, Coronary Artery Disease (All men in family), Diabetes (Mother) Family History: Parent Social History Smoke: No ALCOHOL: occassional Drugs: Marijuana, Crystal meth (in remission) Current Problem List Problem List Problems Medical Problems: (1) Chest pain Status: Acute (2) Unstable angina Status: Acute Current Medications Current Medications Current Medications Nitroglycerin (Nitrostat) 0.4 mg PRN Q5MIN PRN SL CP RATING > 1/10; Start 03/22/21 at 15:15; Stop 03/23/21 at 15:14; Status Cancel Sodium Chloride 1,000 ml @ 1,000 mls/hr Q1H IV Last administered on 03/22/21at 16:51; Start 03/22/21 at 15:15; Stop 03/22/21 at 16:14; Status DC Sodium Chloride (Normal Saline Flush) 10 ml QSHIFT PRN IV AFTER MEDS AND BLOOD DRAWS; Start 03/22/21 at 15:15 Multi-Ingredient Mouthwash/Gargle (Gi Cocktail) 20 ml 1X ONCE SWSW Last administered on 03/22/21at 16:18; Start 03/22/21 at 15:30; Stop 03/22/21 at 15:31; Status DC Ondansetron HCl (Zofran Odt) 4 mg 1X ONCE PO Last administered on 03/22/21at 16:17; Start 03/22/21 at 15:45; Stop 03/22/21 at 15:46; Status DC Nitroglycerin (Nitrostat) 0.4 mg PRN Q5MIN PRN SL CHEST PAIN Last administered on 03/22/21at 16:51; Start 03/22/21 at 16:45 Active Scripts Active Tramadol Hcl 50 Mg Tablet 50 Mg PO Q6-8HRS PRN Medrol (Methylprednisolone) 4 Mg Tab.ds.pk 1 Pkg PO UD Reported No Known Medications Prior To Admisstion (Info) Each 1 Each MC Allergies Allergies: Coded Allergies: No Known Drug Allergies (Unverified , 10/21/13) ROS General: No: Chills, Night Sweats, Fatigue, Malaise, Appetite, Other PSYCHOLOGICAL ROS: No: Anxiety, Behavioral Disorder, Concentration difficultie, Decreased libido, Depression, Disorientation, Hallucinations, Hostility, Irritablity, Memory difficulties, Mood Swings, Obsessive thoughts, Physical abuse, Sexual abuse, Sleep disturbances, Suicidal ideation, Other Eyes: No Blurry vision, No Decreased vision, No Double vision, No Dry eyes, No Excessive tearing, No Eye Pain, No Itchy Eyes, No Loss of vision, No Photophobia, No Scotomata, No Uses contacts, No Uses glasses, No Other HEENT: YES: Heacaches; No: Visual Changes, Hearing change, Nasal congestion, Nasal discharge, Oral lesions, Sinus pain, Sore Throat, Epistaxis, Sneezing, Snoring, Tinnitus, Vert igo, Vocal changes, Other ALLERGY AND IMMUNOLOGY: No: Hives, Insect Bite Sensitivity, Itchy/Watery Eyes, Nasal Congestion, Post Nasal Drip, Seasonal Allergies, Other Hematological and Lymphatic: No: Bleeding Problems, Blood Clots, Blood Transfusions, Brusing, Night Sweats, Pallor, Swollen Lymph Nodes, Other ENDOCRINE: No: Breast Changes, Galactorrhea, Hair Pattern Changes, Hot Flashes, Malaise/lethargy, Mood Swings, Palpitations, Polydipsia/polyuria, Skin Changes, Temperature Intolerance, Unexpected Weight Changes, Other Breast: No New/Changing Breast Lumps, No Nipple changes, No Nipple discharge, No Other Respiratory: YES: Shortness of breath; No: Cough, Hemoptysis, Orthopnea, Pleuritic Pain, SOB with excertion, Sputum Changes, Stridor, Tachypnea, Wheezing, Other Cardiovascular: yes Chest Pain Gastrointestinal: Yes Nausea; No Vomiting, No Abdominal Pain, No Diarrhea, No Constipation, No Melena, No Hematochezia, No Other Genitourinary: No Dysuria, No Frequency, No Incontinence, No Hematuria, No Retention, No Discharge, No Urgency, No Pain, No Flank Pain, No Other, No , No , No , No , No , No , No Musculoskeletal: No Gait Disturbance, No Joint Pain, No Joint Stiffness, No Joint Swelling, No Muscle Pain, No Muscular Weakness, No Pain In:, No Swelling In:, No Other Neurological: No Behavorial Changes, No Bowel/Bladder ControlChng, No Confusion, No Dizziness, No Gait Disturbance, No Headaches, No Impaired Coord/balance, No Memory Loss, No Numbness/Tingling, No Seizures, No Speech Problems, No Tremors, No Visual Changes, No Weakness, No Other Skin: No Dry Skin, No Eczema, No Hair Changes, No Lumps, No Mole Changes, No Mottling, No Nail Changes, No Pruritus, No Rash, No Skin Lesion Changes, No Other, No Acne Physical Exam General: Alert, Oriented X3, Cooperative, mild distress HEENT: Atraumatic, PERRLA, EOMI, Mucous membr. moist/pink Lungs: Clear to auscultation, Normal air movement Heart: S1S2, RRR, no thrills, no rubs, no gallops, no murmurs Abdomen: Normal bowel sounds, Soft, No tenderness, No hepatosplenomegaly, No masses Rectal Exam: not examined Extremities: No clubbing, No cyanosis, No edema, Normal pulses, No tenderness/swelling Skin: No rashes, No breakdown, No significant lesion Neuro: Normal gait, Normal speech, Strength at 5/5 X4 ext, Normal tone, Sensation intact, Cranial nerves 3-12 NL, Reflexes 2+ Psych/Mental Status: Mental status NL, Mood NL Vitals Vitals Vital Signs Date Time Temp Pulse Resp B/P (MAP) Pulse Ox O2 Delivery O2 Flow Rate FiO2 03/22/21 16:51 100 149/92 03/22/21 14:25 98.4 21 96 Room Air 98.4 Labs Labs Laboratory Tests Test 03/22/21 14:40 White Blood Count 6.7 x10^3/uL (4.0-11.0) Red Blood Count 4.50 x10^6/uL (4.30-5.70) Hemoglobin 13.8 g/dL (13.0-17.5) Hematocrit 39.9 % (39.0-53.0) Mean Corpuscular Volume 89 fL (79-100) Mean Corpuscular Hemoglobin 31 pg (25-35) Mean Corpuscular Hemoglobin Concent 35 g/dL (31-37) Red Cell Distribution Width 14.5 % (11.5-14.5) Platelet Count 195 x10^3/uL (140-400) Neutrophils (%) (Auto) 63 % (31-73) Lymphocytes (%) (Auto) 22 % (24-48) Monocytes (%) (Auto) 10 % (0-9) Eosinophils (%) (Auto) 4 % (0-3) Basophils (%) (Auto) 1 % (0-3) Neutrophils # (Auto) 4.2 x10^3/uL (1.8-7.7) Lymphocytes # (Auto) 1.5 x10^3/uL (1.0-4.8) Monocytes # (Auto) 0.7 x10^3/uL (0.0-1.1) Eosinophils # (Auto) 0.3 x10^3/uL (0.0-0.7) Basophils # (Auto) 0.1 x10^3/uL (0.0-0.2) Sodium Level 143 mmol/L (136-145) Potassium Level 4.1 mmol/L (3.5-5.1) Chloride Level 105 mmol/L (98-107) Carbon Dioxide Level 31 mmol/L (21-32) Anion Gap 7 (6-14) Blood Urea Nitrogen 14 mg/dL (8-26) Creatinine 1.1 mg/dL (0.7-1.3) Estimated GFR (Cockcroft-Gault) 69.2 BUN/Creatinine Ratio 13 (6-20) Glucose Level 124 mg/dL (70-99) Calcium Level 8.7 mg/dL (8.5-10.1) Magnesium Level 2.2 mg/dL (1.8-2.4) Total Bilirubin 0.3 mg/dL (0.2-1.0) Direct Bilirubin 0.1 mg/dL (0.0-0.2) Aspartate Amino Transf (AST/SGOT) 21 U/L (15-37) Alanine Aminotransferase (ALT/SGPT) 28 U/L (16-63) Alkaline Phosphatase 84 U/L (46-116) Troponin I Quantitative < 0.017 ng/mL (0.000-0.055) OY-Szy-X-Type Natriuretic Peptide 77 pg/mL (0-124) Total Protein 7.0 g/dL (6.4-8.2) Albumin 3.6 g/dL (3.4-5.0) Albumin/Globulin Ratio 1.1 (1.0-1.7) Lipase 68 U/L (73-393) Laboratory Tests Test 03/22/21 14:40 White Blood Count 6.7 x10^3/uL (4.0-11.0) Red Blood Count 4.50 x10^6/uL (4.30-5.70) Hemoglobin 13.8 g/dL (13.0-17.5) Hematocrit 39.9 % (39.0-53.0) Mean Corpuscular Volume 89 fL (79-100) Mean Corpuscular Hemoglobin 31 pg (25-35) Mean Corpuscular Hemoglobin Concent 35 g/dL (31-37) Red Cell Distribution Width 14.5 % (11.5-14.5) Platelet Count 195 x10^3/uL (140-400) Neutrophils (%) (Auto) 63 % (31-73) Lymphocytes (%) (Auto) 22 % (24-48) Monocytes (%) (Auto) 10 % (0-9) Eosinophils (%) (Auto) 4 % (0-3) Basophils (%) (Auto) 1 % (0-3) Neutrophils # (Auto) 4.2 x10^3/uL (1.8-7.7) Lymphocytes # (Auto) 1.5 x10^3/uL (1.0-4.8) Monocytes # (Auto) 0.7 x10^3/uL (0.0-1.1) Eosinophils # (Auto) 0.3 x10^3/uL (0.0-0.7) Basophils # (Auto) 0.1 x10^3/uL (0.0-0.2) Sodium Level 143 mmol/L (136-145) Potassium Level 4.1 mmol/L (3.5-5.1) Chloride Level 105 mmol/L (98-107) Carbon Dioxide Level 31 mmol/L (21-32) Anion Gap 7 (6-14) Blood Urea Nitrogen 14 mg/dL (8-26) Creatinine 1.1 mg/dL (0.7-1.3) Estimated GFR (Cockcroft-Gault) 69.2 BUN/Creatinine Ratio 13 (6-20) Glucose Level 124 mg/dL (70-99) Calcium Level 8.7 mg/dL (8.5-10.1) Magnesium Level 2.2 mg/dL (1.8-2.4) Total Bilirubin 0.3 mg/dL (0.2-1.0) Direct Bilirubin 0.1 mg/dL (0.0-0.2) Aspartate Amino Transf (AST/SGOT) 21 U/L (15-37) Alanine Aminotransferase (ALT/SGPT) 28 U/L (16-63) Alkaline Phosphatase 84 U/L (46-116) Troponin I Quantitative < 0.017 ng/mL (0.000-0.055) GH-Usc-E-Type Natriuretic Peptide 77 pg/mL (0-124) Total Protein 7.0 g/dL (6.4-8.2) Albumin 3.6 g/dL (3.4-5.0) Albumin/Globulin Ratio 1.1 (1.0-1.7) Lipase 68 U/L (73-393) Images Images Chest radiograph: The cardiomediastinal silhouette and pulmonary vessels are within normal limits. The lung and pleural spaces are clear. IMPRESSION: No acute cardiopulmonary process. VTE Prophylaxis Ordered VTE Prophylaxis Devices: Yes VTE Pharmacological Prophylaxi: Yes Assessment/Plan Assessment/Plan A/P: Chest pain - likely GERD vs achalasia vs esophageal stricture/dysmotility. Risk factors with improvement with ASA and NTG for unstable angina, will admit on telemetry with serial troponins and outpatient stress test referral if neg as well as cardiac consultation Morbid obesity - counseled on cessation Epigastric pain - with prior esophageal dilations needs outpatient GI f/u H/o remove IVDA - in sustained remission FEN - Cardiac diet PPX - heparin FULL CODE Dispo - inpatient Justifications for Admission Other Justification PATRICE JACKSON MD Mar 22, 2021 17:28
[2021-03-22] MEDS ORDERED: ONDANSETRON PF 4 MG/2 ML VIAL. IVP PRN (17:30)
[2021-03-22 19:30] VITALS: BP 145/91
[2021-03-22] MEDS: ACETAMINOPHEN 325 MG TABLET. PO PRN (20:37)
--- NOTE | 2021-03-22 21:54 | NUR ---
Admit at shift change from ED via [facility]. A/O x 4 on arrival to unit. Stood from [facility] in [place] and ambulated to bed in room with steady gait. Reports he is "starving". Ate 2 box lunches. 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 Pulled over on side of road and called for ambulance. Reports depression over recent divorce and loosing his job. Orientated to room and call light. Reviewed POC to include Tele Monitor and lab draws such as Troponin. Verbalized understanding. Resting in bed watching TV. Call light at hand.
[2021-03-22 22:43] VITALS: BP 174/92
[2021-03-23 03:24] VITALS: BP 153/81
[2021-03-23 07:00] VITALS: BP 156/99
[2021-03-23 09:14] LABS: BILIRUBIN,URINE NEGATIVE (NEG); CLARITY,URINE CLEAR; COLOR,URINE YELLOW; NITRITE,URINE NEGATIVE (NEG); PH,URINE 6.5 (<5.0-8.0); PROTEIN,URINE NEGATIVE (NEG-TRACE)
[2021-03-23 09:21] LABS: BARBITURATES NEG (NEG); BENZODIAZEPINES NEG (NEG); CANNABINOIDS POS (NEG); COCAINE NEG (NEG); METHADONE NEG (NEG); OPIATES NEG (NEG); PHENCYCLIDINE NEG (NEG)
[2021-03-23 09:25] LABS: AMPHETAMINE/METHAMPHETAMINE POS (NEG)
[2021-03-23 10:00] LABS: BACTERIA,URINE FEW /HPF (0-FEW); RBC,URINE OCC /HPF (0-2); SPERM,URINE PRESENT /HPF
[2021-03-23 10:01] LABS: HYALINE CASTS, URINE OCCASIONAL /HPF
--- NOTE | 2021-03-23 10:49 | PDOC ---
[employer] PROGRESS NOTE Date of Service DOS: DATE: 03/23/21 TIME: 10:47 Chief Complaint Chief Complaint A/P: Chest pain - likely GERD vs achalasia vs esophageal stricture/dysmotility. Risk factors with improvement with ASA and NTG for unstable angina, will admit on telemetry with serial troponins and outpatient stress test referral if neg as well as cardiac consultation Morbid obesity - counseled on cessation Epigastric pain - with prior esophageal dilations needs outpatient GI f/u H/o remove IVDA - in sustained remission, now has relapsed onto methamphetamine. FEN - Cardiac diet PPX - heparin FULL CODE Dispo - inpatient History of Present Illness History of Present Illness Mr Cross is a 55 year old male w/ PMHx morbid obesity who presents to ED via EMS c/o substernal chest pain. 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 He took two. He notes within 20 minutes he became nauseated and diaphoretic, felt like he was going to pass out, then developed substernal chest pain that radiated up into his throat, at which point he called 911, He notes the pain was 10/10, sharp and with above associated diaphoresis and nausea as well as some slight shortness of breath. Was given 324 aspirin in route along with one sublingual nitroglycerin and decre ased his pain to a 6 out of 10. He has no recent travel, fever or chills, denies any recent illnesses, denies abdominal pain, vomiting, or diarrhea and no recent sick contacts. He does have family history of CAD in mother and father and all men on his side of the family. He is particularly worried because his stepson just had an UT, then on further questioning notes his stepson is not blood related. 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 This is the first time he notes trying THC containing products. Patient denies a cardiac history, reports he was seen in the hospital years ago for irregular heartbeat however was not diagnosed with any cardiac problems. He does note when he was "younger" he had esophageal dilation x2. EKG initially sinus tachycardia with a right bundle branch block, no other ectopy appreciated, MI interval 0.110, QTc interval 0.473, no ST elevations or depressions EKG normal sinus rhythm with incomplete right bundle branch block, rate 89 bpm, MI interval 0.164, QTc interval 0.461, no ST segment elevation or TWI Chest radiograph with no acute findings. CBC and CMP within normal laboratory limits with glucose in 120, not fasting, patient notes drinking a mountain dew prior to arrival. Troponin 0, TSH WNL. Lipase and LFTs WNL Admitted for further observation given his improvement after NTG x2 doses. Troponin troponins trended negative. No abnormalities on telemetry overnight. No shortness of breath or chest pain today pain improved is a little bit of a headache. Urine drug screen returned positive for marijuana and amphetamines. He does confess that he has had a methamphetamine relapse and would like outpatient resources but he feels he does not need to meet with psychiatric assessment team nurse liaison. He is awaiting cardiology eval. He will follow up outpatient with GI as he does feel this may be related to reflux. He will dose himself with THC next time. Vitals/I&O Vitals/I&O: Vital Signs Date Time Temp Pulse Resp B/P (MAP) Pulse Ox O2 Delivery O2 Flow Rate FiO2 03/23/21 08:00 Room Air 03/23/21 07:00 97.1 69 18 156/99 (118) 97 97.1 I & O 03/22/21 03/22/21 03/23/21 15:00 23:00 07:00 Intake Total 200 ml 400 ml Balance 200 ml 400 ml Physical Exam General: Alert, Oriented X3, Cooperative, mild distress Lungs: Clear Abdomen: Normal bowel sounds, Soft, No tenderness, No hepatosplenomegaly, No masses Extremities: No clubbing, No cyanosis, No edema, Normal pulses, No tenderness/swelling Skin: No rashes, No breakdown, No significant lesion Labs Labs: Laboratory Tests Test 03/22/21 14:40 03/22/21 17:30 03/23/21 08:58 White Blood Count 6.7 x10^3/uL (4.0-11.0) Red Blood Count 4.50 x10^6/uL (4.30-5.70) Hemoglobin 13.8 g/dL (13.0-17.5) Hematocrit 39.9 % (39.0-53.0) Mean Corpuscular Volume 89 fL (79-100) Mean Corpuscular Hemoglobin 31 pg (25-35) Mean Corpuscular Hemoglobin Concent 35 g/dL (31-37) Red Cell Distribution Width 14.5 % (11.5-14.5) Platelet Count 195 x10^3/uL (140-400) Neutrophils (%) (Auto) 63 % (31-73) Lymphocytes (%) (Auto) 22 % (24-48) Monocytes (%) (Auto) 10 % (0-9) Eosinophils (%) (Auto) 4 % (0-3) Basophils (%) (Auto) 1 % (0-3) Neutrophils # (Auto) 4.2 x10^3/uL (1.8-7.7) Lymphocytes # (Auto) 1.5 x10^3/uL (1.0-4.8) Monocytes # (Auto) 0.7 x10^3/uL (0.0-1.1) Eosinophils # (Auto) 0.3 x10^3/uL (0.0-0.7) Basophils # (Auto) 0.1 x10^3/uL (0.0-0.2) Sodium Level 143 mmol/L (136-145) Potassium Level 4.1 mmol/L (3.5-5.1) Chloride Level 105 mmol/L (98-107) Carbon Dioxide Level 31 mmol/L (21-32) Anion Gap 7 (6-14) Blood Urea Nitrogen 14 mg/dL (8-26) Creatinine 1.1 mg/dL (0.7-1.3) Estimated GFR (Cockcroft-Gault) 69.2 BUN/Creatinine Ratio 13 (6-20) Glucose Level 124 mg/dL (70-99) Calcium Level 8.7 mg/dL (8.5-10.1) Magnesium Level 2.2 mg/dL (1.8-2.4) Total Bilirubin 0.3 mg/dL (0.2-1.0) Direct Bilirubin 0.1 mg/dL (0.0-0.2) Aspartate Amino Transf (AST/SGOT) 21 U/L (15-37) Alanine Aminotransferase (ALT/SGPT) 28 U/L (16-63) Alkaline Phosphatase 84 U/L (46-116) Troponin I Quantitative < 0.017 ng/mL (0.000-0.055) < 0.017 ng/mL (0.000-0.055) JS-Bvb-E-Type Natriuretic Peptide 77 pg/mL (0-124) Total Protein 7.0 g/dL (6.4-8.2) Albumin 3.6 g/dL (3.4-5.0) Albumin/Globulin Ratio 1.1 (1.0-1.7) Lipase 68 U/L (73-393) Thyroid Stimulating Hormone (TSH) 0.725 uIU/mL (0.358-3.74) Urine Collection Type Unknown Urine Color Yellow Urine Clarity Clear Urine pH 6.5 (<5.0-8.0) Urine Specific [place] 1.025 (1.000-1.030) Urine Protein Negative mg/dL (NEG-TRACE) Urine Glucose (UA) Negative mg/dL (NEG) Urine Ketones (Stick) Negative mg/dL (NEG) Urine Blood Negative (NEG) Urine Nitrite Negative (NEG) Urine Bilirubin Negative (NEG) Urine Urobilinogen Dipstick 1.0 mg/dL (0.2 mg/dL) Urine Leukocyte Esterase Trace (NEG) Urine RBC Occ /HPF (0-2) Urine WBC 5-10 /HPF (0-4) Urine Squamous Epithelial Cells Few /LPF Urine Bacteria Few /HPF (0-FEW) Urine Hyaline Casts Occasional /HPF Urine Mucus Mod /LPF Urine Sperm Present /HPF Urine Opiates Screen Neg (NEG) Urine Methadone Screen Neg (NEG) Urine Barbiturates Neg (NEG) Urine Phencyclidine Screen Neg (NEG) Urine Amphetamine/Methamphetamine Pos (NEG) Urine Benzodiazepines Screen Neg (NEG) Urine Cocaine Screen Neg (NEG) Urine Cannabinoids Screen Pos (NEG) Urine Ethyl Alcohol Neg (NEG) Assessment and Plan Assessmemt and Plan Problems Medical Problems: (1) Chest pain Status: Acute (2) Unstable angina Status: Acute Comment Review of Relevant I have reviewed the following items carla (where applicable) has been applied. Medications: Current Medications Medications (Trade) Dose Ordered Sig/Mandy Route PRN Reason Start Time Stop Time Status Last Admin Dose Admin Sodium Chloride 1,000 ml @ 1,000 mls/hr Q1H IV 03/22/21 15:15 03/22/21 16:14 DC 03/22/21 16:51 Multi-Ingredient Mouthwash/Gargle (Gi Cocktail) 20 ml 1X ONCE SWSW 03/22/21 15:30 03/22/21 15:31 DC 03/22/21 16:18 Ondansetron HCl (Zofran Odt) 4 mg 1X ONCE PO 03/22/21 15:45 03/22/21 15:46 DC 03/22/21 16:17 Nitroglycerin (Nitrostat) 0.4 mg PRN Q5MIN PRN SL CHEST PAIN 03/22/21 16:45 03/22/21 16:51 Acetaminophen (Tylenol) 650 mg PRN Q6HRS PRN PO MILD PAIN / TEMP > 100.3'F 03/22/21 17:30 03/22/21 20:37 Justifications for Admission Other Justification PATRICE JACKSON MD Mar 23, 2021 10:49
[2021-03-23 11:12] VITALS: BP 146/94
--- NOTE | 2021-03-23 11:52 | NUR ---
SS following for discharge planning. SS reviewed pt chart and discussed with pt RN. Pt is from home and is currently on room air. Discharge order on the chart for home with self care.
--- NOTE | 2021-03-23 11:58 | PDOC2 ---
JOSÉ MANUEL DE LEON SHERRY 03/23/21 1158: CARDIAC CONSULT DATE OF CONSULT Date of Consult DATE: 03/23/21 TIME: 11:53 REASON FOR CONSULT Reason for Consult: Chest pain REFERRING PHYSICIAN Referring Physician: Luca Perez APRN SOURCE Source: Chart review, Patient HISTORY OF PRESENT ILLNESS HISTORY OF PRESENT ILLNESS This is a 55 yo male who presented secondary to chest pain. Patient reports taking 2 chewable THC gummies yesterday. After taking, began feeling dizzy, nauseated, and developed stabbing pain in his central chest. Was slightly diaphoretic. No palpitations, Patient reports pain persisted so he came to the ED for further evaluation and treatment. Pain resolved with nitro in ED and has not returned. No previous h/o CAD or prior cardiac workup. 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 Last used last week. UDS positives for marijuana and methamphetamines. PAST MEDICAL HISTORY Cardiovascular: No pertinent hx Pulmonary: No pertinent hx GI: No pertinent hx Psych: Anxiety, Addictions PAST SURGICAL HISTORY Past Surgical History: Other (esophageal dilation x2.) FAMILY HISTORY Family History: Diabetes, Heart Disease SOCIAL HISTORY Smoke: No ALCOHOL: none Drugs: Marijuana, Crystal meth Lives: Alone CURRENT MEDICATIONS CURRENT MEDICATIONS Current Medications Medications (Trade) Dose Ordered Sig/Mandy Route PRN Reason Start Time Stop Time Status Last Admin Dose Admin Sodium Chloride 1,000 ml @ 1,000 mls/hr Q1H IV 03/22/21 15:15 03/22/21 16:14 DC 03/22/21 16:51 Multi-Ingredient Mouthwash/Gargle (Gi Cocktail) 20 ml 1X ONCE SWSW 03/22/21 15:30 03/22/21 15:31 DC 03/22/21 16:18 Ondansetron HCl (Zofran Odt) 4 mg 1X ONCE PO 03/22/21 15:45 03/22/21 15:46 DC 03/22/21 16:17 Nitroglycerin (Nitrostat) 0.4 mg PRN Q5MIN PRN SL CHEST PAIN 03/22/21 16:45 03/22/21 16:51 Acetaminophen (Tylenol) 650 mg PRN Q6HRS PRN PO MILD PAIN / TEMP > 100.3'F 03/22/21 17:30 03/22/21 20:37 ALLERGIES ALLERGIES: Coded Allergies: No Known Drug Allergies (Unverified , 10/21/13) ROS Review of System 14 point ROS conducted with pertinent positives noted above in HPI PHYSICAL EXAM General: Alert, Oriented X3, Cooperative, No acute distress HEENT: Atraumatic, Mucous membr. moist/pink Lungs: Clear to auscultation Heart: Regular rate Abdomen: Soft, No tenderness Extremities: No edema, Normal pulses Skin: No significant lesion Neuro: Normal speech, Sensation intact Psych/Mental Status: Mental status NL, Mood NL MUSCULOSKELETAL: Osteoarthritic changes both hands VITALS/I&O VITALS/I&O: Vital Signs Date Time Temp Pulse Resp B/P (MAP) Pulse Ox O2 Delivery O2 Flow Rate FiO2 03/23/21 11:12 97.1 74 146/94 (111) 97 Room Air 97.1 03/23/21 07:00 18 I & O0 03/22/21 03/22/21 03/23/21 15:00 23:00 07:00 Intake Total 200 ml 400 ml Balance 200 ml 400 ml LABS Lab: Laboratory Tests Test 03/22/21 14:40 03/22/21 17:30 03/23/21 08:58 White Blood Count 6.7 x10^3/uL (4.0-11.0) Red Blood Count 4.50 x10^6/uL (4.30-5.70) Hemoglobin 13.8 g/dL (13.0-17.5) Hematocrit 39.9 % (39.0-53.0) Mean Corpuscular Volume 89 fL (79-100) Mean Corpuscular Hemoglobin 31 pg (25-35) Mean Corpuscular Hemoglobin Concent 35 g/dL (31-37) Red Cell Distribution Width 14.5 % (11.5-14.5) Platelet Count 195 x10^3/uL (140-400) Neutrophils (%) (Auto) 63 % (31-73) Lymphocytes (%) (Auto) 22 % (24-48) L Monocytes (%) (Auto) 10 % (0-9) H Eosinophils (%) (Auto) 4 % (0-3) H Basophils (%) (Auto) 1 % (0-3) Neutrophils # (Auto) 4.2 x10^3/uL (1.8-7.7) Lymphocytes # (Auto) 1.5 x10^3/uL (1.0-4.8) Monocytes # (Auto) 0.7 x10^3/uL (0.0-1.1) Eosinophils # (Auto) 0.3 x10^3/uL (0.0-0.7) Basophils # (Auto) 0.1 x10^3/uL (0.0-0.2) Sodium Level 143 mmol/L (136-145) Potassium Level 4.1 mmol/L (3.5-5.1) Chloride Level 105 mmol/L (98-107) Carbon Dioxide Level 31 mmol/L (21-32) Anion Gap 7 (6-14) Blood Urea Nitrogen 14 mg/dL (8-26) Creatinine 1.1 mg/dL (0.7-1.3) Estimated GFR (Cockcroft-Gault) 69.2 BUN/Creatinine Ratio 13 (6-20) Glucose Level 124 mg/dL (70-99) H Calcium Level 8.7 mg/dL (8.5-10.1) Magnesium Level 2.2 mg/dL (1.8-2.4) Total Bilirubin 0.3 mg/dL (0.2-1.0) Direct Bilirubin 0.1 mg/dL (0.0-0.2) Aspartate Amino Transferase (AST) 21 U/L (15-37) Alanine Aminotransferase (ALT) 28 U/L (16-63) Alkaline Phosphatase 84 U/L (46-116) Troponin I Quantitative < 0.017 ng/mL (0.000-0.055) < 0.017 ng/mL (0.000-0.055) CL-Vwn-O-Type Natriuretic Peptide 77 pg/mL (0-124) Total Protein 7.0 g/dL (6.4-8.2) Albumin 3.6 g/dL (3.4-5.0) Albumin/Globulin Ratio 1.1 (1.0-1.7) Lipase 68 U/L (73-393) L Thyroid Stimulating Hormone (TSH) 0.725 uIU/mL (0.358-3.74) Urine Collection Type Unknown Urine Color Yellow Urine Clarity Clear Urine pH 6.5 (<5.0-8.0) Urine Specific [place] 1.025 (1.000-1.030) Urine Protein Negative mg/dL (NEG-TRACE) Urine Glucose (UA) Negative mg/dL (NEG) Urine Ketones (Stick) Negative mg/dL (NEG) Urine Blood Negative (NEG) Urine Nitrite Negative (NEG) Urine Bilirubin Negative (NEG) Urine Urobilinogen Dipstick 1.0 mg/dL (0.2 mg/dL) Urine Leukocyte Esterase Trace (NEG) Urine RBC Occ /HPF (0-2) Urine WBC 5-10 /HPF (0-4) Urine Squamous Epithelial Cells Few /LPF Urine Bacteria Few /HPF (0-FEW) Urine Hyaline Casts Occasional /HPF Urine Mucus Mod /LPF Urine Sperm Present /HPF Urine Opiates Screen Neg (NEG) Urine Methadone Screen Neg (NEG) Urine Barbiturates Neg (NEG) Urine Phencyclidine Screen Neg (NEG) Urine Amphetamine/Methamphetamine Pos (NEG) Urine Benzodiazepines Screen Neg (NEG) Urine Cocaine Screen Neg (NEG) Urine Cannabinoids Screen Pos (NEG) Urine Ethyl Alcohol Neg (NEG) Laboratory Tests 03/22/21 14:40 Laboratory Tests 03/22/21 14:40 ASSESSMENT/PLAN ASSESSMENT/PLAN 1. Chest pain, mixed features; AMI ruled out. Ocurred following ingestion of THC gummies. EKG shows SR with RBBB, which was noted present on previous study 03/02/17. 2. Hypertension; remains elevated 3. Substance abuse; UDS + for methamphetamines and marijuana use. Reports long-standing h/o IV meth use. Last used last week. Discussed/encouraged cessations; desire expressed Recommendations ASA Lipids Add lisinopril for BP control Echo to assess LV systolic function Consider outpatient ischemic evaluation SAMEER MAGANA MD 03/23/21 1821: CARDIAC CONSULT ASSESSMENT/PLAN ASSESSMENT/PLAN Patient seen and examined I agree with our nurse practitioners assessment and plan. Chest pain. Acute infarction ruled out. As noted above this occurred after ingestion of THC. Urine drug screen also positive for methamphetamines and marijuana. We will continue on aspirin and lisinopril. Echocardiogram for LV function. Lipid panel. Outpatient follow-up. Hypertension. Lisinopril as above. Multisubstance abuse. Discussed with the patient. JOSÉ MANUEL DE LEON APRN Mar 23, 2021 11:58 SAMEER MAGANA MD Mar 23, 2021 18:21
[2021-03-23] MEDS: ACETAMINOPHEN 325 MG TABLET. PO PRN (12:05)
[2021-03-23] MEDS ORDERED: ASPIRIN ENTERIC COATED 81 MG TABLET.DR. PO SCH (12:30)
[2021-03-23] MEDS ORDERED: LISINOPRIL 5 MG TABLET. PO SCH (12:30)
[2021-03-23 15:00] VITALS: BP 144/85
[2021-03-23] MEDS ORDERED: ASPI-886 PO (15:01)
[2021-03-23] MEDS ORDERED: AMLO-186 PO (15:01)
--- NOTE | 2021-03-23 16:25 | NUR ---
Discharge Note: KENDY FRASER [address] [place] [address] Discharge instructions and discharge home medications reviewed with Patient and a copy given. All questions have been answered and understanding verbalized. The following instructions and handouts were given: discharge instructions, follow up info, med list, education. Discontinued lines and drains: Peripheral IV intact. Patient discharged to Home or Self Care with Self via [facility] at 1625. Patient did not have ride & would not wait for cab which was offered. Patient stated he would find a ride. Security walked patient out.
--- NOTE | 2021-03-23 17:11 | PDOC3 ---
Discharge Summary Visit Information Date of Admission: Mar 22, 2021 Date of Discharge: Mar 23, 2021 Admitting Diagnosis: Chest pain Final Diagnosis Problems Medical Problems: (1) Chest pain Status: Acute (2) Unstable angina Status: Acute Brief Hospital Course Allergies Allergies Coded Allergies Type Severity Reaction Last Updated Verified No Known Drug Allergies 10/21/13 No Vital Signs Vital Signs Date Time Temp Pulse Resp B/P (MAP) Pulse Ox O2 Delivery O2 Flow Rate FiO2 03/23/21 15:00 98.4 89 144/85 (104) 98 Room Air 98.4 03/23/21 07:00 18 Lab Results Laboratory Tests Test 03/22/21 14:40 03/22/21 17:30 03/23/21 08:58 White Blood Count 6.7 x10^3/uL (4.0-11.0) Red Blood Count 4.50 x10^6/uL (4.30-5.70) Hemoglobin 13.8 g/dL (13.0-17.5) Hematocrit 39.9 % (39.0-53.0) Mean Corpuscular Volume 89 fL (79-100) Mean Corpuscular Hemoglobin 31 pg (25-35) Mean Corpuscular Hemoglobin Concent 35 g/dL (31-37) Red Cell Distribution Width 14.5 % (11.5-14.5) Platelet Count 195 x10^3/uL (140-400) Neutrophils (%) (Auto) 63 % (31-73) Lymphocytes (%) (Auto) 22 % (24-48) Monocytes (%) (Auto) 10 % (0-9) Eosinophils (%) (Auto) 4 % (0-3) Basophils (%) (Auto) 1 % (0-3) Neutrophils # (Auto) 4.2 x10^3/uL (1.8-7.7) Lymphocytes # (Auto) 1.5 x10^3/uL (1.0-4.8) Monocytes # (Auto) 0.7 x10^3/uL (0.0-1.1) Eosinophils # (Auto) 0.3 x10^3/uL (0.0-0.7) Basophils # (Auto) 0.1 x10^3/uL (0.0-0.2) Sodium Level 143 mmol/L (136-145) Potassium Level 4.1 mmol/L (3.5-5.1) Chloride Level 105 mmol/L (98-107) Carbon Dioxide Level 31 mmol/L (21-32) Anion Gap 7 (6-14) Blood Urea Nitrogen 14 mg/dL (8-26) Creatinine 1.1 mg/dL (0.7-1.3) Estimated GFR (Cockcroft-Gault) 69.2 BUN/Creatinine Ratio 13 (6-20) Glucose Level 124 mg/dL (70-99) Calcium Level 8.7 mg/dL (8.5-10.1) Magnesium Level 2.2 mg/dL (1.8-2.4) Total Bilirubin 0.3 mg/dL (0.2-1.0) Direct Bilirubin 0.1 mg/dL (0.0-0.2) Aspartate Amino Transf (AST/SGOT) 21 U/L (15-37) Alanine Aminotransferase (ALT/SGPT) 28 U/L (16-63) Alkaline Phosphatase 84 U/L (46-116) Troponin I Quantitative < 0.017 ng/mL (0.000-0.055) < 0.017 ng/mL (0.000-0.055) FL-Ajk-J-Type Natriuretic Peptide 77 pg/mL (0-124) Total Protein 7.0 g/dL (6.4-8.2) Albumin 3.6 g/dL (3.4-5.0) Albumin/Globulin Ratio 1.1 (1.0-1.7) Lipase 68 U/L (73-393) Thyroid Stimulating Hormone (TSH) 0.725 uIU/mL (0.358-3.74) Urine Collection Type Unknown Urine Color Yellow Urine Clarity Clear Urine pH 6.5 (<5.0-8.0) Urine Specific [place] 1.025 (1.000-1.030) Urine Protein Negative mg/dL (NEG-TRACE) Urine Glucose (UA) Negative mg/dL (NEG) Urine Ketones (Stick) Negative mg/dL (NEG) Urine Blood Negative (NEG) Urine Nitrite Negative (NEG) Urine Bilirubin Negative (NEG) Urine Urobilinogen Dipstick 1.0 mg/dL (0.2 mg/dL) Urine Leukocyte Esterase Trace (NEG) Urine RBC Occ /HPF (0-2) Urine WBC 5-10 /HPF (0-4) Urine Squamous Epithelial Cells Few /LPF Urine Bacteria Few /HPF (0-FEW) Urine Hyaline Casts Occasional /HPF Urine Mucus Mod /LPF Urine Sperm Present /HPF Urine Opiates Screen Neg (NEG) Urine Methadone Screen Neg (NEG) Urine Barbiturates Neg (NEG) Urine Phencyclidine Screen Neg (NEG) Urine Amphetamine/Methamphetamine Pos (NEG) Urine Benzodiazepines Screen Neg (NEG) Urine Cocaine Screen Neg (NEG) Urine Cannabinoids Screen Pos (NEG) Urine Ethyl Alcohol Neg (NEG) Laboratory Tests Test 03/22/21 17:30 03/23/21 08:58 Troponin I Quantitative < 0.017 ng/mL (0.000-0.055) Thyroid Stimulating Hormone (TSH) 0.725 uIU/mL (0.358-3.74) Urine Collection Type Unknown Urine Color Yellow Urine Clarity Clear Urine pH 6.5 (<5.0-8.0) Urine Specific [place] 1.025 (1.000-1.030) Urine Protein Negative mg/dL (NEG-TRACE) Urine Glucose (UA) Negative mg/dL (NEG) Urine Ketones (Stick) Negative mg/dL (NEG) Urine Blood Negative (NEG) Urine Nitrite Negative (NEG) Urine Bilirubin Negative (NEG) Urine Urobilinogen Dipstick 1.0 mg/dL (0.2 mg/dL) Urine Leukocyte Esterase Trace (NEG) Urine RBC Occ /HPF (0-2) Urine WBC 5-10 /HPF (0-4) Urine Squamous Epithelial Cells Few /LPF Urine Bacteria Few /HPF (0-FEW) Urine Hyaline Casts Occasional /HPF Urine Mucus Mod /LPF Urine Sperm Present /HPF Urine Opiates Screen Neg (NEG) Urine Methadone Screen Neg (NEG) Urine Barbiturates Neg (NEG) Urine Phencyclidine Screen Neg (NEG) Urine Amphetamine/Methamphetamine Pos (NEG) Urine Benzodiazepines Screen Neg (NEG) Urine Cocaine Screen Neg (NEG) Urine Cannabinoids Screen Pos (NEG) Urine Ethyl Alcohol Neg (NEG) Brief Hospital Course Mr Cross is a 55 year old male w/ PMHx morbid obesity who presents to ED via EMS c/o substernal chest pain. 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 He took two. He notes within 20 minutes he became nauseated and diaphoretic, felt like he was going to pass out, then developed substernal chest pain that radiated up into his throat, at which point he called 911, He notes the pain was 10/10, sharp and with above associated diaphoresis and nausea as well as some slight shortness of breath. Was given 324 aspirin in route along with one sublingual nitroglycerin and decreased his pain to a 6 out of 10. He has no recent travel, fever or chills, denies any recent illnesses, denies abdominal pain, vomiting, or diarrhea and no recent sick contacts. He does have family history of CAD in mother and father and all men on his side of the family. He is particularly worried because his stepson just had an CA, then on further questioning notes his stepson is not blood related. 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 This is the first time he notes trying THC containing products. Patient denies a cardiac history, reports he was seen in the hospital years ago for irregular heartbeat however was not diagnosed with any cardiac problems. He does note when he was "younger" he had esophageal dilation x2. EKG initially sinus tachycardia with a right bundle branch block, no other ectopy appreciated, MD interval 0.110, QTc interval 0.473, no ST elevations or depressions EKG normal sinus rhythm with incomplete right bundle branch block, rate 89 bpm, MD interval 0.164, QTc interval 0.461, no ST segment elevation or TWI Chest radiograph with no acute findings. CBC and CMP within normal laboratory limits with glucose in 120, not fasting, patient notes drinking a mountain dew prior to arrival. Troponin 0, TSH WNL. Lipase and LFTs WNL Admitted for further observation given his improvement after NTG x2 doses. Troponins trended negative. No abnormalities on telemetry overnight. No shortness of breath or chest pain today pain improved is a little bit of a headache. Urine drug screen returned positive for marijuana and amphetamines. He does confess that he has had a methamphetamine relapse and would like outpatient resources but he feels he does not need to meet with psychiatric assessment team nurse liaison. He is awaiting cardiology eval. He will follow up outpatient with GI as he does feel this may be related to reflux. He will dose himself with THC next time. Underwent echocardiogram with findings pending. No gross abnormalities on my review. Outpatient referral for cardiac stress test ECHOCARDIOGRAM: The left ventricle is normal size. The left ventricular systolic function is normal and the ejection fraction is within normal range. The Ejection Fraction is 50-55%. There is mild concentric left ventricular hypertrophy. Doppler and Color Flow revealed no significant aortic regurgitation. There is no significant aortic valvular stenosis. Doppler and Color Flow revealed no mitral valve regurgitation noted. Doppler and Color Flow revealed no tricuspid valve regurgitation noted. Consults: Cardiology Problem list: Chest pain - likely GERD vs achalasia vs esophageal stricture/dysmotility. Risk factors with improvement with ASA and NTG for unstable angina, will admit on telemetry with serial troponins and outpatient stress test referral if neg as well as cardiac consultation Morbid obesity - counseled on cessation Epigastric pain - with prior esophageal dilations needs outpatient GI f/u H/o remove IVDA - in sustained remission, now has relapsed onto methamphetamine. Greater than 30 minutes spent on d/c home with self care on amlodipine Discharge Information Condition at Discharge: Improved Follow Up: Weeks (1) Disposition/Orders: D/C to Home Scheduled Amlodipine Besylate (Amlodipine Besylate) 5 Mg Tablet, 5 MG PO DAILY for HTN for 30 Days, #30 Ref 2 Prescribed by: PATRICE JACKSON MD on 03/23/21 1501 Aspirin (Aspirin Ec) 81 Mg Tablet.dr, 81 MG PO DAILYWBKFT for CAD for 30 Days, #30 Ref 11 Prescribed by: PATRICE JACKSON MD on 03/23/21 1501 Discontinued Medications Info (No Known Medications Prior To Admisstion) Each, 1 EACH , (Reported) Entered as Reported by: NANCY CARMONA on 02/25/18 0433 Justicifation of Admission Dx: Justifications for Admission: Justification of Admission Dx: Yes PATRICE JACKSON MD Mar 23, 2021 17:10
--- NOTE | 2021-03-23 17:19 | CARD ---
MR#: [id number] Date of Study: 03/23/2021 Ordering Physician: JOSÉ MANUEL DE LEON, Referring Physician: JOSÉ MANUEL DE LEON, Tech: Jennifer Neilhenry, [facility] APPROVED REPORT EXAM: Two-dimensional and M-mode echocardiogram with Doppler and color Doppler. Other Information Quality : AverageHR: 71bpm INDICATION Chest Pain RISK FACTORS Hypertension 2D DIMENSIONS RVDd4.5 (2.9-3.5cm)Left Atrium(2D)3.9 (1.6-4.0cm) IVSd1.4 (0.7-1.1cm)Aortic Root(2D)4.3 (2.0-3.7cm) LVDd5.7 (3.9-5.9cm)LVOT Diameter2.2 (1.8-2.4cm) PWd1.3 (0.7-1.1cm)LVDs3.7 (2.5-4.0cm) FS (%) 34.4 %SV100.4 ml Aortic Valve AoV Peak Jose D.119.3cm/sAoV VTI20.5cm AO Peak GR.5.7mmHgLVOT Peak Jose D.82.0cm/s LVOT VTI 15.12cmAO Mean GR.3mmHg THAI (VMAX)1.97ev3WBI (VTI)2.82cm2 Mitral Valve MV E Zwozfuxn94.5cm/sMV DECEL [id number] MV A Mmpsfnzz02.8cm/sMV E Mean Gr.1mmHg MV AQW90nxX/A Ratio0.9 MVA (PHT)3.05cm2 TDI E/Lateral E'5.8E/Medial E'9.8 Pulmonary Valve PV Peak Xewhkfch861.2cm/sPV Peak Grad.4mmHg LEFT VENTRICLE The left ventricle is normal size. There is mild concentric left ventricular hypertrophy. The left ve ntricular systolic function is normal and the ejection fraction is within normal range. The Ejection Fraction is 50-55%. There is normal LV segmental wall motion. Transmitral Doppler flow pattern is Gra de II-pseudonormal filling dynamics. RIGHT VENTRICLE The right ventricle is mildly dilated. There is normal right ventricular wall thickness. The right ve ntricular systolic function is normal. ATRIA The left atrium size is normal. The right atrium is mildly dilated. The interatrial septum is intact with no evidence for an atrial septal defect or patent foramen ovale as noted on 2-D or Doppler imagi ng. AORTIC VALVE The aortic valve is normal in structure and function. Doppler and Color Flow revealed no significant aortic regurgitation. There is no significant aortic valvular stenosis. Calculated aortic valve area is 2.86 cm2 with maximum pressure gradient of 6 mmHg and mean pressure gradient of 4 mmHg. MITRAL VALVE The mitral valve is normal in structure and function. There is no evidence of mitral valve prolapse. There is no mitral valve stenosis. Doppler and Color Flow revealed no mitral valve regurgitation note d. TRICUSPID VALVE The tricuspid valve is normal in structure and function. Doppler and Color Flow revealed no tricuspid valve regurgitation noted. There is no tricuspid valve stenosis. PULMONIC VALVE The pulmonic valve is not well visualized. Doppler and Color Flow revealed no pulmonic valvular regur gitation. GREAT VESSELS The aortic root is normal in size. The ascending aorta is normal in size. The IVC is normal in size a nd collapses >50% with inspiration. PERICARDIAL EFFUSION There is no evidence of significant pericardial effusion. Critical Notification Critical Value: No <Conclusion> The left ventricle is normal size. The left ventricular systolic function is normal and the ejection fraction is within normal range. The Ejection Fraction is 50-55%. There is mild concentric left ventricular hypertrophy. Doppler and Color Flow revealed no significant aortic regurgitation. There is no significant aortic valvular stenosis. Doppler and Color Flow revealed no mitral valve regurgitation noted. Doppler and Color Flow revealed no tricuspid valve regurgitation noted. Signed by : Ron Rdz MD Electronically Approved : 03/23/2021 17:19:08
== END 2021-03-23 16:25 | disposition home or self-care (01) ==
LOC: ER 14:25 → 2 SOUTH 19:15 → ER 19:15 → 2 SOUTH 20:25
PROVIDERS: ADMIT Internal Medicine; ATTEND Internal Medicine
DX: I20.0 Unstable angina (principal); I11.9 Hypertensive heart disease without heart failure; I45.10 Unspecified right bundle-branch block; F15.11 Other stimulant abuse, in remission; F12.10 Cannabis abuse, uncomplicated; E66.01 Morbid (severe) obesity due to excess calories; Z87.891 Personal history of nicotine dependence; Z95.0 Presence of cardiac pacemaker; Z68.37 Body mass index [BMI] 37.0-37.9, adult; Z90.49 Acquired absence of other specified parts of digestive tract; Z79.899 Other long term (current) drug therapy
CPT/HCPCS: 36415; 71045; 80053; 80076; 80307; 81001; 83690; 83735; 83880; 84443; 84484; 85025; 87086; 93005; 93306; 96360; 99285; G0378; J7030; G0379